=== PATIENT | female | born 1955 | race Caucasian/White ===

== ENCOUNTER 2020-11-20 12:38 | Emergency (ER) | payer SELFPAY ==
[~2020-11-20] VITALS: Ht 165.1 cm; Wt 105.1 kg
[2020-11-20 12:49] VITALS: BP 148/86
[2020-11-20] MEDS ORDERED: DIPH,PERTUSS(ACELL),TET VAC/PF 0.5 ML IM-VACC ONE ×2 (13:00→15:25)
[2020-11-20] MEDS ORDERED: LIDOCAINE 2%, 20ML SQ ONE (13:00)
--- NOTE | 2020-11-20 15:07 | NUR ---
KNIFER UP: PT TO ROOM FROM LOBBY
[2020-11-20] MEDS ORDERED: LIDOCAINE-MPF 1%, 5ML ONE ×2 (15:21→15:29)
[2020-11-20] MEDS ORDERED: CLINDAMYCIN 300 MG CAPSULE ONE (15:25)
[2020-11-20] MEDS ORDERED: OXYcodone/APAP 5/325MG TABLET ONE (15:25)
[2020-11-20] MEDS ORDERED: CLINDAMYCIN 300 MG CAPSULE PO ONE (15:30)
[2020-11-20] MEDS ORDERED: OXYcodone/APAP 5/325MG TABLET PO ONE (15:30)
--- NOTE | 2020-11-20 15:35 | NUR ---
pa at bedside to numb wound. pt bit by sisters dog this am. Went to urgent care and was reffered here.
== END 2020-11-20 16:44 | disposition home or self-care (01) ==
LOC: ED 13:08
DX: S81.852A Open bite, left lower leg, initial encounter (principal); W54.0XXA Bitten by dog, initial encounter; Y93.89 Activity, other specified; Y92.009 Unspecified place in unspecified non-institutional (private) residence as the place of occurrence of the external cause; Y99.8 Other external cause status
CPT/HCPCS: 12031; 73590; 90471; 90715; 99284; J3490